=== PATIENT | female | born 1945 | race Caucasian/White ===

== ENCOUNTER 2016-06-19 09:01 | Day surgery (SDC) | payer OTHER ==
[2016-06-07 17:07] VITALS: BMI 26.4
--- NOTE | 2016-06-12 08:45 | HP ---
Satellite H - Chief Complaint Chief Complaint: left index finger pain, mass - Past Medical History Allergies/Adverse Reactions: Allergies Allergy/AdvReac Type Severity Reaction Status Date / Time simvastatin AdvReac Intermediate Verified 06/07/16 17:08 - Current Medications Current Medications: Medication Instructions Recorded Aspirin [Aspirin EC] 81 mg PO DAILY 06/07/16 Lisinopril [Prinivil] 20 mg PO DAILY 06/07/16 Metformin HCl 500 mg PO HS 06/07/16 Pravastatin Sodium 10 mg PO HS 06/07/16 Hydrocodone/Acetaminophen 1 each PO Q6H #30 tablet MDD 4 06/12/16 [Hydrocodon-Acetaminoph 7.5-325] Satellite Physical Exam - Physical Examination General Appearance: Well Nourished, Well Developed, Alert & Oriented x3 ENT: Clear Lung: Normal air movement Heart: Regular rate & rhythm Extremities: Other (left index finger- + mass, + ttp, decr rom, nvi) Neurological: Intact, Alert, Oriented Satellite Impression/Plan - Impression/Plan Impression: left index finger OA, ganglion cyst Operative Procedure: left index finger ganglion cyst excision, shaving of osteophyte Date to be Performed: 06/12/16
[~2016-06-19 09:01] MED LIST: LACTATED RINGERS SOLUTION 1,000 ML IV SCH; ONDANSETRON 4 MG/2 ML VIAL IVPUSH PRN; oxyCODONE HCL 5 MG TABLET PO PRN
[2016-06-19] MEDS ORDERED: BUPIVACAINE HCL/PF 0.5% (5MG/ML) 10 ML VIAL ONE (10:22)
[2016-06-19] MEDS ORDERED: LIDOCAINE HCL 1%, 10 MG/ML (20ML VIAL) ONE (10:22)
[2016-06-19] MEDS ORDERED: PROPOFOL 20 ML ONE ×2 (10:36)
[2016-06-19] MEDS ORDERED: MIDAZOLAM HCL 2 MG/2 ML SINGLE DOSE VIAL ONE (10:37)
[2016-06-19] MEDS ORDERED: ceFAZolin SODIUM 1 GM VIAL ONE (10:54)
[2016-06-19] MEDS ORDERED: ceFAZolin SODIUM 1 GM VIAL IVPB ONE (10:57)
[2016-06-19] MEDS ORDERED: LIDOCAINE HCL 1%, 10 MG/ML (20ML VIAL) IJ ONE (11:05)
[2016-06-19] MEDS ORDERED: BUPIVACAINE HCL/PF 0.25% (2.5MG/ML) 10 ML VIAL IJ ONE (11:05)
--- NOTE | 2016-06-19 11:07 | OP ---
Operative Note - Note: Operative Date: 06/19/16 ([facility]) Pre-Operative Diagnosis: left index ganglion, OA Operation: left index finger ganglion cyst excision and removal of osteophyte Post-Operative Diagnosis: Same as Pre-op Surgeon: Rodrigue Cast Anesthesiologist/SALES ORDER COORDINATOR: Jhoana Burton Anesthesia: Local, MAC Specimens Removed: ganglion Estimated Blood Loss (mls): 0 (tourniquet) Operative Report Dictated: Yes
[2016-06-19] MEDS ORDERED: KETOROLAC TROMETHAMINE 30 MG/1 ML VIAL ONE (11:15)
[2016-06-19] MEDS ORDERED: PROMETHAZINE HCL 25 MG/1 ML VIAL IVPUSH PRN (11:46)
[2016-06-19] MEDS ORDERED: ONDANSETRON 4 MG/2 ML VIAL IVPUSH PRN (11:46)
[2016-06-19 13:04] VITALS: TEMP 20
[2016-06-19 14:12] VITALS: BP 121/64; PULSE 67
--- NOTE | 2016-06-19 14:22 | OP ---
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 PROCEDURE: Left index finger excision of osteophytes and ganglion cyst, left index finger. SPECIMEN: Bone and soft tissue. DRAINS: None. COMPLICATIONS: None. FLUID REPLACEMENT: 500 mL Plasmalyte. BLOOD LOSS: None. BLOOD GIVEN: None. INDICATIONS: This patient is a 71-year-old female with a preoperative diagnosis of painful osteophytes on the left index finger DIP joint and an overlying ganglion cyst. After understanding the potential risks, complications, alternatives, benefits of the surgery versus non-surgical treatment, the patient elected to undergo this procedure. Patient understands she will still have some pain postoperatively because the DIP joint itself is not going to be touched. She understands this and has elected to go forward with the procedure. DESCRIPTION OF PROCEDURE: The patient was brought to the operating room, peripheral IV placed, IV sedation given. MAC anesthesia was induced. Left upper extremity was prepped and draped in sterile fashion. Then, 10 mL of 0.5% Marcaine with 1% lidocaine mix was injected in and around the metacarpal head and metacarpal head block as well mid axial. Incisions on the radial and ulnar aspect of the left index finger DIP joint. Left upper extremity was then elevated, exsanguinated with an Esmarch bandage, and tourniquet inflated to 250 mmHg. First, I made the incision on the ulnar aspect of the left index finger DIP joint. Subcutaneous hemostasis was achieved with bipolar cautery. Dissection was done with curved iris scissors. Great care was taken to protect the neurovascular structures. I dissected down to the DIP joint, where there was a small osteophyte coming off of the base of the distal phalanx. This was taken down with a rongeur, and then, a rasp used to file down the bone on the proximal and distal aspects of the DIP joint. Area was irrigated and felt quite smooth, and closure was done with a single interrupted and horizontal mattress 4-0 nylon sutures. Next, our attention was turned to the radial side of the index finger, and exactly the same procedure was done, but in addition, I cut out a ganglion cyst in an elliptical fashion out of the skin. On this side, there was a larger distal phalanx osteophyte. This was taken down again with a rongeur, smoothed out with a rasp. It felt quite good. It was irrigated out. I felt it again. It felt smooth, and closure was done with nylon again. The area was washed and dried, covered with Xeroform, 4x4 gauze, fluffs between the fingers, Webril and Coban. The tourniquet was taken down after a total tourniquet time of 28minutes. There were no complications during the case. The patient tolerated the procedure quite well and was brought to the ambulatory recovery room in stable condition. RODRIGUE NICHOLAS M.D. [id number]
--- NOTE | 2016-06-20 12:59 | PATH ---
Surgical Pathology Report Patient Name: TRACE GUZMAN [facility]. Rec. #: [id number] /Age/Gender: 1945 (Age: 71) / F Account: [id number] Location: [facility] SURGICAL Taken: 06/19/2016 Received: 06/19/2016 Reported: 06/20/2016 Physicians: Rodrigue Cast M.D. Specimen(s) Received CYST LEFT INDEX FINGER Clinical History Left hand arthritis Final Diagnosis SKIN, SOFT TISSUE AND BONE, LEFT INDEX FINGER, CYST, EXCISION: TENOSYNOVIAL FIBROCONNECTIVE TISSUE WITH CYSTIC SPACE WITHOUT DEFINED LINING CONSISTENT WITH GANGLION CYST. FRAGMENTS OF BONE AND CARTILAGE WITH DEGENERATIVE CHANGES. FRAGMENTS OF UNREMARKABLE SKIN. Electronically Signed Jose Choe M.D. Gross Description Received in formalin, labeled "left index finger ganglion cyst" is a 1.0 x 0.8 x 0.1 cm aggregate of basurto skin and soft tissue fragments. The specimen is submitted in toto in one cassette. 06/19/2016 [facility]06/19/2016
== END 2016-06-19 14:12 | disposition home or self-care (01) ==
LOC: JASU-SURG 09:01
PROVIDERS: ATTEND Orthopaedic Surgery
PROC: 0XBK0ZZ Excision of Left Hand, Open Approach (ICD-10-PCS; principal; 2016-06-19 10:30)
DX: M67.48 Ganglion, other site (principal); M19.042 Primary osteoarthritis, left hand
CPT/HCPCS: 88304-TC; 94760

== ENCOUNTER 2022-03-27 04:27 | Day surgery (SDC) | payer OTHER ==
[2022-03-26 16:33] VITALS: BMI 24.8
[2022-03-27] MEDS ORDERED: ROPIVACAINE HCL 0.5% 30ML VIAL ONE (09:28)
[2022-03-27] MEDS ORDERED: MIDAZOLAM HCL 2 MG/2 ML SINGLE DOSE VIAL ONE (09:29)
[2022-03-27] MEDS ORDERED: PROPOFOL 20 ML ONE ×2 (09:52→10:28)
[2022-03-27] MEDS ORDERED: ceFAZolin SODIUM 1 GM VIAL ONE (10:01)
[2022-03-27] MEDS ORDERED: LIDOCAINE HCL 1%, 10 MG/ML (20ML VIAL) ONE (10:15)
[2022-03-27] MEDS ORDERED: BUPIVACAINE HCL/PF 0.5% (5MG/ML) 10 ML VIAL ONE (10:16)
[2022-03-27] MEDS ORDERED: BUPIVACAINE HCL/PF 0.5% (5MG/ML) 10 ML VIAL IJ ONE ×2 (10:33)
[2022-03-27] MEDS ORDERED: LIDOCAINE HCL 1%, 10 MG/ML (20ML VIAL) INF ONE ×2 (10:33)
[2022-03-27] MEDS ORDERED: ePHEDrine SULFATE 50 MG/1 ML AMPULE ONE (10:51)
[2022-03-27] MEDS ORDERED: oxyCODONE HCL 5 MG TABLET PO PRN (11:47)
[2022-03-27] MEDS ORDERED: PROMETHAZINE HCL 25 MG/1 ML VIAL IVPUSH PRN (11:47)
[2022-03-27] MEDS ORDERED: ONDANSETRON 4 MG/2 ML VIAL IVPUSH PRN (11:47)
[2022-03-27] MEDS ORDERED: IBUPROFEN 800 MG/8 ML IJ IVPB PRN (11:47)
[2022-03-27] MEDS ORDERED: ACETAMINOPHEN 325 MG TABLET (FP) PO PRN (11:47)
[2022-03-27] MEDS ORDERED: LACTATED RINGERS SOLUTION 1,000 ML IV SCH (12:00)
[2022-03-27 12:03] VITALS: PULSE 60
[2022-03-27 14:31] VITALS: BP 127/81; TEMP 97
[2022-03-27 14:34] VITALS: RESP 15
== END 2022-03-27 13:30 | disposition home or self-care (01) ==
LOC: JASU-SURG 04:27
PROVIDERS: ATTEND Orthopaedic Surgery
PROC: 0RR Upper Joints, Replacement (ICD-10-PCS; principal; 2022-03-27 09:00)
DX: M19.041 Primary osteoarthritis, right hand (principal)
CPT/HCPCS: 76000-TC-FY; 82962; 88304-TC; 88311-TC; 94760